=== PATIENT | male | born 1975 | race Caucasian/White ===

== ENCOUNTER 2017-09-29 19:36 | Emergency (ER) | payer OTHER ==
[~2017-09-29] VITALS: Ht 182.9 cm; Wt 89.0 kg
[~2017-09-29 19:36] MED LIST: ADDE30TA PO; ADVAI250I PO; HYDR-4347 PO; LEVA750T PO; METO50CR PO; MOBI7.5T PO; PRED20 PO; PREG300 PO; VENTAER INH; XANA0.5T PO
[2017-09-29] MEDS ORDERED: ACETAMINOPHEN/CODEINE 300 MG/30 MG TAB PO ONE (20:30)
[2017-09-29] MEDS ORDERED: CLINDAMYCIN 150 MG CAP PO ONE (20:30)
--- NOTE | 2017-09-29 20:34 | PD ---
HPI Chief Complaint: Psychiatric Symptoms Time Seen by Provider: 20:11 Travel History International Travel<30 days: No Contact w/Intl Traveler<30days: No Traveled to known affect area: No History of Present Illness HPI 42-year-old male presents under Betancourt act. Patient was transferred from [facility] where he was medically admitted and discharged today, medically cleared there. According to his Betancourt act form the patient reportedly attempted to overdose on Haldol. The patient's was reportedly feeling depressed and suicidal after a breakup. At this point time he is feeling calm and is no longer feeling depressed or suicidal. Symptoms were moderate, aggravated by breakup of her relationship with no alleviating factors. He was also being treated for cellulitis in his right arm and right leg, discharged with a prescription for clindamycin 300 mg 3 times a day. Denies any drug or alcohol use. He has no other complaints at this time. [facility] Social History Alcohol Use: No Tobacco Use: Yes Allergies-Medications (Allergen,Severity, Reaction): Coded Allergies: No Known Allergies (Unverified , 08/17/14) Reported Meds & Prescriptions Reported Meds & Active Scripts Active Metoprolol Succinate ER 50 mg (Metoprolol Succinate) 50 Mg Tab 50 Mg PO DAILY Deltasone 20 Mg Tab (Prednisone) 20 Mg Tab 40 Mg PO DAILY Levaquin 750 Mg Tab (Levofloxacin) 750 Mg Tab 750 Mg PO DAILY Reported Ventolin Hfa (Albuterol Sulfate) 18 Gm Aero 2 Puff INH Q6H PRN * SHAKE WELL BEFORE USE * Advair Diskus 250/50 (Salmeterol Xinafoate/Fluticasone) Fluticasone/Salmeterol 250/50 Inh 1 Puff PO BID Mobic (Meloxicam) 7.5 Mg Tab 7.5 Mg PO BID Lyrica (Pregabalin) 300 Mg Cap 300 Mg PO BID Lorcet Hd 10 mg/325 mg 1 Tab 1 Tab PO QID PRN Adderall 30 mg (Amphetamine/Dextroamphetamine) 30 Mg Tab 30 Mg PO DAILY Xanax 0.5 mg (Alprazolam) Alprazolam 0.5 mg Tab 1 Tab PO BID Review of Systems Except as stated in HPI: all other systems reviewed are Neg Physical Exam Narrative GENERAL: Well-developed well-nourished male in no acute distress SKIN: Warm and dry. A scabbed lesion is noted on the right side of the face. Bandages are noticed on the right arm and the right leg. HEAD: Atraumatic. Normocephalic. EYES: Pupils equal and round. No scleral icterus. No injection or drainage. ENT: No nasal bleeding or discharge. Mucous membranes pink and moist. NECK: Trachea midline. No JVD. CARDIOVASCULAR: Regular rate and rhythm. No murmur appreciated. RESPIRATORY: No accessory muscle use. Clear to auscultation. Breath sounds equal bilaterally. GASTROINTESTINAL: Abdomen soft, non-tender, nondistended. Hepatic and splenic margins not palpable. MUSCULOSKELETAL: No obvious deformities. No clubbing. No cyanosis. No edema. NEUROLOGICAL: Awake and alert. No obvious cranial nerve deficits. Motor grossly within normal limits. Normal speech. PSYCHIATRIC: Appropriate mood and affect; insight and judgment normal. Data Data Orders Orders Clindamycin (Cleocin) (09/29/17 20:30) Acetamin-Codeine 300-30 Mg (Tylenol-Code (09/29/17 20:30) MDM Medical Decision Making Medical Screen Exam Complete: Yes Emergency Medical Condition: Yes Medical Record Reviewed: Yes Differential Diagnosis Adjustment reaction, acute psychosis, substance-induced mood disorder, major depressive disorder Narrative Course I reviewed his lab work and imaging studies from [facility]. He will be given clindamycin 300 mg every 8 hours during the duration of his hospital stay as previously prescribed. He is medically cleared for psychiatric disposition. Diagnosis Primary Impression: Medical clearance for psychiatric admission Rene Cope Sep 29, 2017 20:34
[2017-09-29] MEDS ORDERED: GABA300C5 PO (21:38)
[2017-09-29] MEDS ORDERED: PERC5TAB12 PO (21:38)
[2017-09-29] MEDS ORDERED: BENZ0.5T PO (21:38)
[2017-09-29] MEDS ORDERED: CLIN300C5 PO (21:38)
[2017-09-29] MEDS ORDERED: HALO5TAB PO (21:38)
[2017-09-29 21:57] VITALS: BP 117/66; PULSE 85; RESP 16; O2SAT 96
[2017-09-30] MEDS: CLINDAMYCIN 150 MG CAP PO SCH ×3 (04:00→14:00)
[2017-09-30 06:30] VITALS: BP 118/73; PULSE 98; RESP 18; O2SAT 98
[2017-09-30 10:40] VITALS: BP 121/68; PULSE 120; RESP 20; O2SAT 99
[2017-09-30 14:36] VITALS: BP 121/75; PULSE 110; RESP 18; O2SAT 98
--- NOTE | 2017-09-30 16:21 | PD.PSY.CON ---
Provisional Diagnosis Admission Date History of Present Illness Service Psychiatry Primary Care Physician No Primary Care Physician HPI 42-year-old male presents under Betancourt act. Patient was transferred from [facility] where he was medically admitted and discharged today, medically cleared there. According to his Betancourt act form the patient reportedly attempted to overdose on Haldol. The patient's was reportedly feeling depressed and suicidal after a breakup. At this point time he is feeling calm and is no longer feeling depressed or suicidal. Symptoms were moderate, aggravated by breakup of her relationship with no alleviating factors. He was also being treated for cellulitis in his right arm and right leg, discharged with a prescription for clindamycin 300 mg 3 times a day. Denies any drug or alcohol use. He has no other complaints at this time. Past Family Social History Coded Allergies: ketorolac (Verified Allergy, Unknown, 09/29/17) lamotrigine (Verified Allergy, Unknown, 09/29/17) mouth sores Reported Medications Clindamycin (Clindamycin) 300 Mg Cap, 300 MG PO TID for Infection, CAP 0 Refills 09/29/17 Gabapentin (Gabapentin) 300 Mg Cap, 300 MG PO BID, #60 CAP 0 Refills 09/29/17 Benztropine (Benztropine) 0.5 Mg Tab, 1 MG PO BID, #60 TAB 0 Refills 09/29/17 Oxycodone-Acetaminophen (Percocet) 5-325 mg Tab, 2 TAB PO Q4H Y for PAIN, TAB 0 Refills 09/29/17 Haloperidol (Haloperidol) 5 Mg Tab, 10 MG PO BID, TAB 0 Refills 09/29/17 Discontinued Reported Medications Albuterol Sulfate (Ventolin Hfa) 18 Gm Aero, 2 PUFF INH Q6H Y for SOB/WHEEZING, #1 BOX * SHAKE WELL BEFORE USE * 09/07/14 Fluticasone/Salmeterol 250 mcg/50 mcg (Advair Diskus 250/50) Fluticasone/ Salmeterol 250/50 Inh, 1 PUFF PO BID, #1 INHALER 09/07/14 Meloxicam (Mobic) 7.5 Mg Tab, 7.5 MG PO BID, TAB 15 Pregabalin (Lyrica) 300 Mg Cap, 300 MG PO BID, CAP 06/07/14 Lorcet Hd 10 mg/325 mg (Lorcet Hd 10 mg/325 mg) 1 Tab, 1 TAB PO QID Y for PAIN, TAB 06/07/14 Adderall 30 mg (Adderall 30 mg) 30 Mg Tab, 30 MG PO DAILY, TAB 06/07/14 Alprazolam (Xanax 0.5 mg) Alprazolam 0.5 mg Tab, 1 TAB PO BID, TAB 06/07/14 Discontinued Scripts Metoprolol Succinate ER 50 mg (Metoprolol Succinate ER 50 mg) 50 Mg Tab, 50 MG PO DAILY, #90 TAB 0 Refills Prov:Fred Sanchez MD 12/20/14 Prednisone (Deltasone 20 Mg Tab) 20 Mg Tab, 40 MG PO DAILY, #10 TAB 0 Refills Prov:Fred Sanchez MD 08/17/14 Levofloxacin (Levaquin 750 Mg Tab) 750 Mg Tab, 750 MG PO DAILY, #5 TAB 0 Refills Prov:Fred Sanchez MD 08/17/14 Current Medications Medications (Trade) Dose Ordered Sig/Carlos Route Start Time Stop Time Status Last Admin (Cleocin) 300 mg Q8HR PO 09/30/17 04:00 09/30/17 04:00 Physical Exam Vital Signs Vital Signs Date Time Temp Pulse Resp B/P (MAP) Pulse Ox O2 Delivery O2 Flow Rate FiO2 09/30/17 14:36 110 18 121/75 (90) 98 Room Air Mental Status Examination Appearance: Appropriate Consciousness: Alert Orientation: x4 Motor Activity: Normal gait Speech: Unremarkable Language: Adequate Fund of Knowledge: Adequate Attention and Concentration: Adequate Memory: Unremarkable Mood: Appropriate Affect: Appropriate Thought Process & Associations: Intact Thought Content: Appropriate Hallucination Type: None Delusion Type: None Suicidal Ideation: No Suicidal Plan: No Suicidal Intention: No Homicidal Ideation: No Homicidal Plan: No Homicidal Intention: No Insight: Adequate Judgment: Adequate Assessment & Plan Problem List: (1) Adjustment disorder with depressed mood ICD Codes: F43.21 - Adjustment disorder with depressed mood Assessment & Plan: Betancourt act to be lifted Assessment & Plan Estimated LOS: Fernie Olivo MD Sep 30, 2017 16:21
--- NOTE | 2017-09-30 16:47 | PD ---
Physical Exam Date Seen by Provider: Sep 30, 2017 Time Seen by Provider: 16:46 Data Data Last Documented VS Vital Signs Date Time Temp Pulse Resp B/P (MAP) Pulse Ox O2 Delivery O2 Flow Rate FiO2 09/30/17 14:36 110 18 121/75 (90) 98 Room Air Orders Orders Clindamycin (Cleocin) (09/29/17 20:30) Acetamin-Codeine 300-30 Mg (Tylenol-Code (09/29/17 20:30) Clindamycin (Cleocin) (09/30/17 04:00) Psych Screen (09/29/17 21:42) Diet Regular Basic (09/30/17 Breakfast) Diet Regular Basic (09/30/17 Lunch) Diet Regular Basic (09/30/17 Dinner) MDM Supervised Visit with SARAN: No Narrative Course 42-year-old male brought to the ED under Betancourt act for psychiatric evaluation. He was initially Rene Cope PA-C and medically cleared. He was then evaluated by Dr. Quinn, psychiatrist. Betancourt act was lifted. Patient is diagnosed with adjustment disorder with depressed mood. He is instructed to follow-up with outpatient psychiatric resources. He is stable and discharged home. Diagnosis Primary Impression: Medical clearance for psychiatric admission Additional Impression: Adjustment disorder with depressed mood Referrals: Psychiatrist Additional Instruction: Follow-up with outpatient psychiatric resources. Return to the ED for any urgent or emergent medical condition. Disposition: 01 DISCHARGE HOME Condition: Stable Vidhi Soto Sep 30, 2017 16:47
== END 2017-09-30 17:40 | disposition home or self-care (01) ==
LOC: NEPJ 19:36
DX: F43.21 Adjustment disorder with depressed mood (principal); Z72.0 Tobacco use
CPT/HCPCS: 99284